=== PATIENT | female | born 1995 | race American Indian/Alaskan Native ===

== ENCOUNTER 2020-08-25 05:07 | Emergency (ER) | payer SELFPAY ==
[2020-08-25 06:07] VITALS: BP 135/89
--- NOTE | 2020-08-25 07:36 | Emergency Department Report ---
ED Extremity Problem HPI - General Chief complaint: Extremity Problem,Nontraumatic Stated complaint: ANKLE PAIN Time Seen by Provider: 08/25/20 07:23 Source: patient Mode of arrival: Ambulatory Limitations: No Limitations - History of Present Illness Initial comments: 25-year-old female with with past history of tobacco use presents to the ER today with complaints of bilateral ankle and foot swelling. Patient states that she has noticed it for the past 2 to 3 weeks. She reports some soreness mainly on movement of the ankle and foot and on palpation but otherwise she said does not really hurt. She denies any recent injury but she states that her job requires lots of sitting. She reports no calf pain or discoloration to her extremities. She denies any chest pain or shortness of breath. She denies similar symptoms in the past. She denies history of hypertension, kidney disease, heart disease or any other significant past history MD Complaint: extremity swelling, joint swelling -: Gradual, week(s) (2-3) - Related Data Allergies Allergy/AdvReac Type Severity Reaction Status Date / Time No Known Allergies Allergy Unverified 08/25/20 06:03 ED Review of Systems ROS: Stated complaint: ANKLE PAIN Other details as noted in HPI Comment: All other systems reviewed and negative Constitutional: denies: chills, fever Eyes: denies: eye pain, eye discharge, vision change Respiratory: denies: cough, shortness of breath, SOB with exertion, SOB at rest, wheezing Cardiovascular: as per HPI, edema. denies: chest pain, palpitations, dyspnea on exertion, syncope, paroxysmal nocturnal dyspnea Gastrointestinal: denies: abdominal pain, nausea, diarrhea, constipation, hematemesis, melena, hematochezia Genitourinary: denies: urgency, dysuria, frequency, hematuria, discharge, abnormal menses, dyspareunia Musculoskeletal: joint swelling, arthralgia. denies: back pain Skin: denies: rash, lesions Neurological: denies: headache, weakness, paresthesias, confusion, abnormal gait, vertigo Psychiatric: denies: anxiety, depression ED Past Medical Hx - Past Medical History Previous Medical History?: No - Surgical History Past Surgical History?: No - Social History Smoking Status: Current Every Day Smoker Substance Use Type: Alcohol ED Physical Exam - General Limitations: No Limitations General appearance: alert, in no apparent distress, obese - Head Head exam: Present: atraumatic, normocephalic, normal inspection - Respiratory Respiratory exam: Present: normal lung sounds bilaterally. Absent: respiratory distress - Cardiovascular Cardiovascular Exam: Present: regular rate, normal rhythm, normal heart sounds - Extremities Exam Extremities exam: Present: full ROM, tenderness (Mild tenderness to the dorsal aspect of foot bilaterally.), normal capillary refill, joint swelling (Mild swelling about both ankles and dorsal foot), other (No calf swelling). Absent: calf tenderness - Neurological Exam Neurological exam: Present: alert, oriented X3, CN II-XII intact, normal gait - Psychiatric Psychiatric exam: Present: normal affect, normal mood - Skin Skin exam: Present: intact, normal color ED Course Vital Signs 08/25/20 06:05 Temperature 98.7 F Pulse Rate 73 Respiratory 20 Rate Blood Pressure 135/89 O2 Sat by Pulse 100 Oximetry ED Medical Decision Making - Lab Data Result diagrams: 08/25/20 07:39 08/25/20 07:39 - Radiology Data Radiology results: report reviewed 25-year-old female with with past history of tobacco use presents to the ER today with complaints of bilateral ankle and foot swelling. Patient states that she has noticed it for the past 2 to 3 weeks. She reports some soreness mainly on movement of the ankle and foot and on palpation but otherwise she said does not really hurt. She denies any recent injury but she states that her job requires lots of sitting. She reports no calf pain or discoloration to her extremities. She denies any chest pain or shortness of breath. She denies cody lar symptoms in the past. She denies history of hypertension, kidney disease, heart disease or any other significant past history. 0845: Labs reviewed and all wnl including nl d-dimer. Patient is currently resting comfortably on phone in no distress. She is well appearing and not toxic and she is neurologically intact. She has normal gait in ED. VS stable. Discussed lab results with patient. Discussed differential diagnosis of lower extremity swelling including dependent edema and venous insufficiency with patient. At this time no emergent concern for cause of edema. Recommend that she elevate her leg as often as possible, try to decrease her salt intake and follow-up with her primary care doctor. Patient expressed understanding of instructions and agree with plan. Patient stable at time of discharge. Critical care attestation.: If time is entered above; I have spent that time in minutes in the direct care of this critically ill patient, excluding procedure time. ED Disposition Clinical Impression: Edema, peripheral, Joint swelling Disposition: - TO HOME OR SELFCARE Is pt being admited?: No Does the pt Need Aspirin: No Condition: Stable Instructions: Edema, [id number], Peripheral Edema Additional Instructions: I recommend that you elevate your feet as often as possible. You can take Tylenol or ibuprofen for pain. follow-up with the primary care doctor listed on your discharge instruction if your symptoms persist. Return to the ER if your symptoms changes or worsens in any way. Referrals: LIN GERBER MD [Staff Physician] - 3-5 Days Forms: Work/School Release Form(ED) Time of Disposition: 08:35
[2020-08-25 08:09] LABS: Basophils % (Auto) 0.6 % (0.0-1.8); Eosinophils # (Auto) 0.1 K/mm3 (0.0-0.4); Eosinophils % (Auto) 1.8 % (0.0-4.3); Hematocrit 41.2 % (30.3-42.9); Hemoglobin 13.8 gm/dl (10.1-14.3); Lymphocytes # (Auto) 2.3 K/mm3 (1.2-5.4); Lymphocytes % (Auto) 39.4 % (13.4-35.0); Mean Corpuscular HGB Conc 34 % (30-34); Mean Corpuscular Volume 88 fl (79-97); Monocytes # (Auto) 0.4 K/mm3 (0.0-0.8); Platelet Count 241 K/mm3 (140-440); Red Blood Count 4.67 M/mm3 (3.65-5.03); Red Cell Distribution Width 13.7 % (13.2-15.2)
[2020-08-25 08:28] LABS: Alanine Aminotransferase 12 units/L (7-56); Albumin 3.6 g/dL (3.9-5); Blood Urea Nitrogen 14 mg/dL (7-17); Calcium 8.9 mg/dL (8.4-10.2); Hemolysis Index 3
[2020-08-25 08:39] LABS: BUN/Creatinine Ratio 20
== END 2020-08-25 08:46 | disposition home or self-care (01) ==
LOC: ED 05:07
DX: M79.89 Other specified soft tissue disorders (principal); R60.9 Edema, unspecified; F17.200 Nicotine dependence, unspecified, uncomplicated
CPT/HCPCS: 36415; 80053; 85025; 85379